=== PATIENT | female | born 1980 | race Caucasian/White ===

== ENCOUNTER 2017-02-17 10:45 | Outpatient (CLI) | payer MEDICAID ==
[2017-02-17 18:26] LABS: BASOPHILS % (AUTO) 0.3 %; EOSINOPHILS # (AUTO) 0.1 10^3/uL (0.0-0.7); EOSINOPHILS % (AUTO) 1.2 %; HCT - HEMATOCRIT 44.3 % (37.0-47.0); HGB - HEMOGLOBIN 14.5 g/dL (12.0-16.0); LYMPHOCYTES # (AUTO) 2.7 10^3/uL (1.5-3.5); LYMPHOCYTES % (AUTO) 29.3 %; MEAN CORPUSCULAR HEMOGLOBIN 29.6 pg (27.0-31.0); MEAN CORPUSCULAR HGB CONC 32.7 g/dL (32.0-36.0); MEAN CORPUSCULAR VOLUME 90.4 fL (81.0-99.0); MEAN PLATELET VOLUME 12.2 fL (7.9-10.8); MONOCYTES # (AUTO) 0.5 10^3/uL (0.0-1.0); MONOCYTES % (AUTO) 5.3 %; NEUTROPHILS # (AUTO) 5.8 10^3/uL (1.5-6.6); NEUTROPHILS % (AUTO) 63.9 %; NUCLEATED RED BLOOD CELLS AUTO 0.1 /100WBC; RED CELL DISTRIBUTION WIDTH 13.3 % (12.0-15.0); UNCORRECTED WHITE BLOOD COUNT 9.1 x10^3/uL; WHITE BLOOD COUNT 9.1 x10^3/uL (4.8-10.8)
[2017-02-17 18:45] LABS: ALBUMIN/GLOBULIN RATIO 1.3 (1.0-2.2); BILIRUBIN,TOTAL 0.6 mg/dL (0.2-1.0); CALCIUM 9.2 mg/dL (8.5-10.3); CREATININE 0.7 mg/dL (0.4-1.0); POTASSIUM 4.1 mmol/L (3.5-5.0); TOTAL PROTEIN 7.4 g/dL (6.7-8.2)
[2017-02-17 19:09] LABS: THYROID STIMULATING HORMONE 2.19 uIU/mL (0.34-5.60)
== END 2017-02-17 10:46 | disposition home or self-care (01) ==
LOC: LAB.F 10:45
PROVIDERS: ATTEND Nurse Practitioner Family
DX: R60.1 Generalized edema (principal)
CPT/HCPCS: 36415; 80053; 83880; 84439; 84443; 84481; 85025

== ENCOUNTER 2018-02-17 12:42 | Outpatient (CLI) | payer MEDICAID ==
[2018-02-17 18:09] LABS: BASOPHILS % (AUTO) 0.3 %; EOSINOPHILS # (AUTO) 0.1 10^3/uL (0.0-0.7); EOSINOPHILS % (AUTO) 1.2 %; HGB - HEMOGLOBIN 13.9 g/dL (12.0-16.0); LYMPHOCYTES # (AUTO) 2.2 10^3/uL (1.5-3.5); LYMPHOCYTES % (AUTO) 23.1 %; MEAN CORPUSCULAR HEMOGLOBIN 29.6 pg (27.0-31.0); MEAN CORPUSCULAR HGB CONC 33.3 g/dL (32.0-36.0); MEAN PLATELET VOLUME 11.6 fL (7.9-10.8); MONOCYTES # (AUTO) 0.4 10^3/uL (0.0-1.0); MONOCYTES % (AUTO) 4.6 %; NEUTROPHILS # (AUTO) 6.6 10^3/uL (1.5-6.6); NEUTROPHILS % (AUTO) 70.8 %; PLT - PLATELET COUNT 210 10^3/uL (130-450); RED BLOOD COUNT 4.69 10^6/uL (4.20-5.40); RED CELL DISTRIBUTION WIDTH 13.2 % (12.0-15.0); WHITE BLOOD COUNT 9.4 x10^3/uL (4.8-10.8)
[2018-02-17 18:23] LABS: ALBUMIN 4.2 g/dL (3.2-5.5); ALBUMIN/GLOBULIN RATIO 1.3 (1.0-2.2); BILIRUBIN,TOTAL 0.9 mg/dL (0.2-1.0); CALCIUM 9.3 mg/dL (8.5-10.3); CREATININE 0.6 mg/dL (0.4-1.0); TOTAL PROTEIN 7.4 g/dL (6.7-8.2)
[2018-02-17 19:14] LABS: THYROID STIMULATING HORMONE 2.17 uIU/mL (0.34-5.60)
[2018-02-17 19:16] LABS: FREE T4 (FREE THYROXINE) 0.87 ng/dL (0.58-1.64)
== END 2018-02-17 12:43 | disposition home or self-care (01) ==
LOC: LAB.F 12:42
PROVIDERS: ATTEND Nurse Practitioner Family
DX: I10 Essential (primary) hypertension (principal)
CPT/HCPCS: 36415; 80053; 84439; 84443; 84481; 85025

== ENCOUNTER 2018-04-28 17:10 | Outpatient (CLI) | payer MEDICAID | END 2018-04-28 17:11 | disposition home or self-care (01) | LOC: RT.S 17:10 | PROVIDERS: ATTEND Nurse Practitioner Family | DX: R00.2 Palpitations (principal) | CPT/HCPCS: 93005 ==

== ENCOUNTER 2018-06-16 11:33 | Outpatient (CLI) | payer MEDICAID ==
--- NOTE | 2018-06-18 01:43 | CARDIAC PROCEDURE NOTE ---
DATE OF SERVICE: 06/16/2018 Physician: JAIME Conteh ORDERING PROVIDER: JAIME Marinelli PROCEDURE: Stress echocardiogram. PROCEDURE SYMPTOMS: Daily palpitations and dyspnea on exertion. CARDIAC RISK FACTORS: Severe hypertension. PREVIOUS CARDIAC PROCEDURES: None. CLINICAL HISTORY: A 38-year-old female without known coronary artery disease. She has no current symptoms. INITIAL RESTING VITAL SIGNS: Blood pressure 124/74, heart rate 76, height 64 inches, weight 191 pounds, BMI 32.78. The patient consumed a small cup of coffee 5 hours ago. PROCEDURE AND FINDINGS: The patient's identity and date verified. Consent signed. After resting echocardiogram images were obtained, the patient performed treadmill exercise using a Jt protocol, completing 5 minutes, 58 seconds and an estimated workload of 7.05 metabolic equivalents. Maximal blood pressure was 146/70, with a heart rate of 162 beats per minute or 89% of maximum predicted heart rate for age. The blood pressure response to exercise was within normal limits. The patient stopped because she rated exercise as hard and was getting short of breath. She could also feel her heartbeat in her neck. The resting ECG showed normal sinus rhythm with slight slurred upstroke and intraventricular conduction delay. There was less than 0.[address] segment depression. The patient developed a right bundle branch block in the last minute of exercise when her heart rate was over 160. The bundle branch resolved by 3 minutes into recovery. Post-exercise images were obtained immediately on cessation of exercise. FINAL IMPRESSION 1. Good quality test. 2. No ST segment depression of significance. 3. Negative stress test clinically for angina. 4. Developed right bundle branch block in the last minute of the test, resolving spontaneously 3 minutes later. 5. The patient did have palpitations and shortness of breath at peak exercise. 6. Possible AVNRT. Recommend referral to cable installation technician for evaluation. TD: 06/17/2018 18:13 SHAJI
== END 2018-06-16 11:34 | disposition home or self-care (01) ==
LOC: DI 11:33
PROVIDERS: ATTEND Nurse Practitioner Family
DX: R00.2 Palpitations (principal); R06.00 Dyspnea, unspecified; I10 Essential (primary) hypertension
CPT/HCPCS: 93017

== ENCOUNTER 2018-07-14 09:44 | Emergency (ER) | payer MEDICAID ==
[2018-07-14 10:04] LABS: BILIRUBIN,URINE NEGATIVE (NEGATIVE); GLUCOSE, URINE (UA) NEGATIVE (NEGATIVE); KETONES,URINE (UA) NEGATIVE (NEGATIVE); LEUKOCYTE ESTERASE, URINE NEGATIVE (NEGATIVE); NITRITE,URINE NEGATIVE (NEGATIVE); OCCULT BLOOD,URINE LARGE (NEGATIVE); PROTEIN,URINE 30 mg/dL (NEGATIVE); UROBILINOGEN,URINE 0.2 (NORMAL) E.U./dL (NORMAL)
[2018-07-14 10:07] LABS: CLARITY,URINE SL. CLOUDY (CLEAR)
[2018-07-14 10:13] LABS: BACTERIA,URINE Few /HPF (None Seen); SQUAMOUS EPITHELIAL CELL,UR MANY Squamous (<= Few)
[2018-07-14] MEDS ORDERED: ONDANSETRON 4 MG/2 ML VIAL IVP STA (10:22)
[2018-07-14] MEDS ORDERED: SODIUM CHLORIDE 0.9% 1,000 ML IV ONE ×2 (10:23→13:52)
[2018-07-14 10:31] LABS: HCG UR QUAL NEGATIVE
[2018-07-14] MEDS ORDERED: MORPHINE 2 MG/ML CARPUJECT IVP STA ×2 (10:39→11:25)
[2018-07-14] MEDS ORDERED: FAMOTIDINE 20 MG/50 ML 50 ML IV ONE (11:00)
[2018-07-14 11:09] LABS: MUDS CUTOFF CONCENTRATIONS CUTOFF CONC BELOW:
[2018-07-14 11:56] LABS: AMPHETAMINE SCREEN,URINE NEGATIVE (NEGATIVE); BENZODIAZEPINES SCREEN, URINE NEGATIVE (NEGATIVE); COCAINE SCREEN URINE NEGATIVE (NEGATIVE); METHADONE SCREEN, URINE NEGATIVE (NEGATIVE); METHAMPHETAMINES SCREEN, URINE NEGATIVE (NEGATIVE); OPIATE SCREEN, URINE NEGATIVE (NEGATIVE); OXYCODONE SCREEN, URINE NEGATIVE (NEGATIVE); PROPOXYPHENE SCREEN, URINE NEGATIVE (NEGATIVE); TRICYCLIC ANTIDEPRESSANT,URINE NEGATIVE (NEGATIVE)
[2018-07-14 12:22] LABS: BASOPHILS % (AUTO) 0.4 %; EOSINOPHILS % (AUTO) 0.1 %; HGB - HEMOGLOBIN 13.8 g/dL (12.0-16.0); LYMPHOCYTES % (AUTO) 8.2 %; MEAN CORPUSCULAR HEMOGLOBIN 30.9 pg (27.0-31.0); MEAN CORPUSCULAR HGB CONC 34.5 g/dL (32.0-36.0); MEAN CORPUSCULAR VOLUME 89.8 fL (81.0-99.0); MEAN PLATELET VOLUME 10.5 fL (7.9-10.8); MONOCYTES # (AUTO) 0.3 10^3/uL (0.0-1.0); MONOCYTES % (AUTO) 2.2 %; NEUTROPHILS # (AUTO) 10.9 10^3/uL (1.5-6.6); NEUTROPHILS % (AUTO) 89.1 %; PLT - PLATELET COUNT 202 10^3/uL (130-450); RED BLOOD COUNT 4.46 10^6/uL (4.20-5.40); RED CELL DISTRIBUTION WIDTH 12.5 % (12.0-15.0); WHITE BLOOD COUNT 12.2 x10^3/uL (4.8-10.8)
[2018-07-14 12:38] LABS: ALBUMIN 4.2 g/dL (3.2-5.5); ALBUMIN/GLOBULIN RATIO 1.4 (1.0-2.2); BILIRUBIN,TOTAL 0.9 mg/dL (0.2-1.0); CALCIUM 8.1 mg/dL (8.5-10.3); CREATININE 0.7 mg/dL (0.4-1.0); TOTAL PROTEIN 7.1 g/dL (6.7-8.2)
[2018-07-14] MEDS ORDERED: IOPAMIDOL-300 100 ML VIAL ONE (12:39)
--- NOTE | 2018-07-14 13:29 | CT Report ---
Reason: ABDOMINAL PAIN Procedure Date: 07/14/2018 Accession Number: [id number] / [id number] Procedure: CT - Abdomen/Pelvis W/ CPT Code: FULL RESULT: EXAM: CT ABDOMEN AND PELVIS EXAM DATE: 07/14/2018 01:20 PM. CLINICAL HISTORY: Abdominal pain. COMPARISONS: None. TECHNIQUE: Routine helical CT imaging was performed through the abdomen and pelvis. IV contrast: ISOVUE 300 100mL. Enteric contrast: No. Reconstructions: Coronal and sagittal. In accordance with CT protocol optimization, one or more of the following dose reduction techniques were utilized for this exam: automated exposure control, adjustment of mA and/or KV based on patient size, or use of iterative reconstructive technique. FINDINGS: Lung Bases: Unremarkable. Liver: Normal. No masses. Gallbladder/Bile Ducts: Status post cholecystectomy. Spleen: Normal. Pancreas: Normal. Adrenal Glands: Normal. Kidneys: There is left perinephric fat stranding and mild hydronephrosis due to a obstructing 6 mm ureteral calculus on the left at the level of L3. Peritoneal Cavity/Bowel: Normal. No free fluid, free air or adenopathy. No masses or acute inflammatory process. The appendix is well visualized and normal. Pelvic Organs: Normal. The bladder and visualized pelvic organs are within normal limits. Vasculature: No aneurysms or other significant abnormality. Bones: No aggressive osseous lesion. Other: None. IMPRESSION: Obstructing left 6 mm calculus with mild upstream hydronephrosis. RADIA cRITICAL RESULT: The findings were discussed with Dr. Grider on 07/14/2018 at 1:25 PM.
[2018-07-14] MEDS ORDERED: KETOROLAC 60 MG/2 ML VIAL IVP STA (13:36)
[2018-07-14] MEDS ORDERED: TAMSULOSIN 0.4 MG CAPSULE PO STA (13:42)
[2018-07-14] MEDS ORDERED: LIDOCAINE-MPF 2% 6 ML in SODIUM CHLORIDE 0.9% 50 ML IV STA (13:44)
--- NOTE | 2018-07-14 15:12 | ED Physician Documentation ---
PD HPI ABD PAIN - Stated complaint Stated Complaint: UPPER LF ABD PX/VOMITING - Chief complaint Chief Complaint: Abd Pain - History obtained from History obtained from: Patient - History of Present Illness Timing - duration: Hours (3) Timing - details: Abrupt onset, Waxing and waning, Still present in ED Pain level max: 10 Pain level now: 10 Quality: Sharp Location: LUQ Improved by: Other (NOTHING) Worsened by: Other (NOTHING) Associated symptoms: Nausea, Vomiting. No: Fever, Hematemesis, Diarrhea, Constipation, Dysuria, Hematuria, Chest pain, Dizzy, Near syncope / syncope, Loss of appetite, Vaginal dc Similar symptoms before: Has not had sx before Recently seen: Not recently seen Review of Systems Ten Systems: 10 systems reviewed and negative Constitutional: denies: Fever, Chills Cardiac: denies: Chest pain / pressure Respiratory: denies: Dyspnea GI: reports: Abdominal Pain, Nausea, Vomiting. 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 04/15/15 Ondansetron HCl [Zofran] 4 mg PO Q6H PRN #20 tablet 01/01/16 Oxycodone HCl/Acetaminophen 1 each PO Q6H PRN #20 tablet 01/01/16 [Percocet 5-325 mg Tablet] RX: raNITIdine [Zantac] 150 mg PO BID #20 tablet 01/01/16 Diphenoxylate HCl/Atropine 1 each PO Q6H PRN #20 tablet 03/19/16 [Lomotil 2.5-0.025 mg Tablet] Ondansetron HCl [Zofran] 4 mg PO Q6H PRN #20 tablet 03/19/16 Ibuprofen [Motrin] 800 mg PO Q8H PRN #30 tablet 07/14/18 Ondansetron Odt [Zofran] 4 mg TL Q6H PRN #10 tablet 07/14/18 Oxycodone HCl/Acetaminophen 1 each PO Q6H PRN #14 tablet 07/14/18 [Percocet 5-325 mg Tablet] Tamsulosin HCl [Flomax] 0.4 mg PO DAILY #7 cap.er.24h 07/14/18 - Allergies Allergies/Adverse Reactions: Allergies Allergy/AdvReac Type Severity Reaction Status Date / Time hydrocodone bitartrate * AdvReac Mild Itching Verified 07/14/18 09:50 [From Vicodin] lidocaine AdvReac Mild Itching Verified 07/14/18 09:50 - Social History Does the pt smoke?: No Smoking Status: Never smoker Does the pt drink ETOH?: No Does the pt have substance abuse?: No - Immunizations Immunizations are current?: Yes PD ED PE NORMAL - Vitals Vital signs reviewed: Yes - General General: Alert and oriented X 3, Well developed/nourished, Other (Appears uncomfortable due to abdominal pain while laying on her right side.) - HEENT HEENT: Moist mucous membranes - Neck Neck: Supple, no meningeal sign - Cardiac Cardiac: RRR, No murmur - Respiratory Respiratory: No respiratory distress, Clear bilaterally - Abdomen Abdomen: Normal bowel sounds, Soft, Non distended, Other (tender to palpation of LUQ and LLQ of the abdomen. No rebound. No guarding.) - Back Back: No CVA TTP, No spinal TTP - Derm Derm: Normal color, Warm and dry - Extremities Extremities: No deformity - Neuro Neuro: Alert and oriented X 3, Normal speech - Psych Psych: Normal mood, Normal affect Results - Vitals Vitals: Vital Signs - 24 hr 07/14/18 07/14/18 07/14/18 09:47 10:46 11:00 Temperature 36.7 C Heart Rate 83 87 89 Respiratory 22 16 16 Rate Blood Pressure 144/92 H 131/83 H 131/83 H O2 Saturation 100 100 100 07/14/18 07/14/18 07/14/18 11:41 11:50 14:11 Temperature Heart Rate 95 102 H 85 Respiratory 15 21 15 Rate Blood Pressure 151/85 H 151/85 H 128/77 O2 Saturation 100 100 96 07/14/18 14:30 Temperature Heart Rate 86 Respiratory 16 Rate Blood Pressure 128/77 O2 Saturation 97 Oxygen O2 Source Room air - Labs Labs: Laboratory Tests 07/14/18 07/14/18 07/14/18 09:55 09:55 09:55 WBC RBC Hgb Hct MCV MCH MCHC RDW Plt Count MPV Neut # (Auto) Lymph # (Auto) Archer # (Auto) Eos # (Auto) Baso # (Auto) Absolute Nucleated RBC Nucleated RBC % Sodium Potassium Chloride Carbon Dioxide Anion Gap BUN Creatinine Estimated GFR (MDRD) Glucose Calcium Total Bilirubin AST ALT Alkaline Phosphatase Total Protein Albumin Globulin Albumin/Globulin Ratio Lipase Urine Color YELLOW Urine Clarity SL. CLOUDY Urine pH 6.0 Ur Specific [place] >=1.030 H >=1.030 H Urine Protein 30 H Urine Glucose (UA) NEGATIVE Urine Ketones NEGATIVE Urine Occult Blood LARGE H Urine Nitrite NEGATIVE Urine Bilirubin NEGATIVE Urine Urobilinogen 0.2 (NORMAL) Ur Leukocyte Esterase NEGATIVE Urine RBC 11-25 H Urine WBC 0-3 Ur Squamous Epith Cells MANY Squamous H Urine Bacteria Few Ur Microscopic Review INDICATED Urine Culture Comments NOT INDICATED Urine HCG, Qual NEGATIVE Urine Opiates Screen NEGATIVE Ur Oxycodone Screen NEGATIVE Urine Methadone Screen NEGATIVE Ur Propoxyphene Screen NEGATIVE Ur Barbiturates Screen NEGATIVE Ur Tricyclics Screen NEGATIVE Ur Phencyclidine Scrn NEGATIVE Ur Amphetamine Screen NEGATIVE U Methamphetamines Scrn NEGATIVE U Benzodiazepines Scrn NEGATIVE Urine Cocaine Screen NEGATIVE U Cannabinoids Screen NEGATIVE Infectious Archer Assay 07/14/18 07/14/18 07/14/18 12:16 12:16 12:16 WBC 12.2 H RBC 4.46 Hgb 13.8 Hct 40.0 MCV 89.8 MCH 30.9 MCHC 34.5 RDW 12.5 Plt Count 202 MPV 10.5 Neut # (Auto) 10.9 H Lymph # (Auto) 1.0 L Archer # (Auto) 0.3 Eos # (Auto) 0.0 Baso # (Auto) 0.0 Absolute Nucleated RBC 0.00 Nucleated RBC % 0.0 Sodium 132 L Potassium 3.3 L Chloride 105 Carbon Dioxide 19 L Anion Gap 8.0 BUN 10 Creatinine 0.7 Estimated GFR (MDRD) 94 Glucose 120 H Calcium 8.1 L Total Bilirubin 0.9 AST 37 ALT 43 Alkaline Phosphatase 84 Total Protein 7.1 Albumin 4.2 Globulin 2.9 Albumin/Globulin Ratio 1.4 Lipase 30 Urine Color Urine Clarity Urine pH Ur Specific [place] Urine Protein Urine Glucose (UA) Urine Ketones Urine Occult Blood Urine Nitrite Urine Bilirubin Urine Urobilinogen Ur Leukocyte Esterase Urine RBC Urine WBC Ur Squamous Epith Cells Urine Bacteria Ur Microscopic Review Urine Culture Comments Urine HCG, Qual Urine Opiates Screen Ur Oxycodone Screen Urine Methadone Screen Ur Propoxyphene Screen Ur Barbiturates Screen Ur Tricyclics Screen Ur Phencyclidine Scrn Ur Amphetamine Screen U Methamphetamines Scrn U Benzodiazepines Scrn Urine Cocaine Screen U Cannabinoids Screen Infectious Archer Assay NEGATIVE PD MEDICAL DECISION MAKING - ED course Complexity details: reviewed results, re-evaluated patient (1013 pt requesting for pain med. She stated she had morphine before without reactions. Pt informed as soon as her UCG is negative she will be given pain meds. 1126 Per nurse pt just received pain med 10 minutes ago and requesting for another dose. No MS given right now. 1155 Pt continues to have pain, will give another MS dose. 1336 Pt informed of test results. Explained to pt and spouse the CT scan results. Pt informed a urology consult is pending. 1445 Pt informed of urologist appointment. Pt states feels better after given toradol and lidocaine IV. Agreed to outpatient follow up w/ the urologist. Stated wants pain meds prescription. She stated had percocet before without problems. Pt will discharged on percocet, motrin, zofran and flomax. ), considered differential (pancreatitis, obstruction, volvolus, uti, kidney stone, diverticulitis), d/w patient, d/w family, d/w direct sales consultant - Consults Consults: Consulted (name) ([facility] [place] urologist seeing a pt right now. Info given to urologist nurse. They want the CT scan be sent to them. CRITICAL CARE NURSE SPECIALIST informed. [address] Barrett called me back and she stated pt's CT scan is unimpressive so pt can be discharged and they will call us back for pt's follow up appointment.) Departure - Departure Disposition: 01 Home, Self Care Clinical Impression: Renal colic, Kidney stone on left side Abdominal pain Qualifiers: Abdominal location: left upper quadrant Qualified Code(s): R10.12 - Left upper quadrant pain Condition: Good Instructions: Abdominal Pain Follow-Up: Melani Ferrer, DIRECT SALES CONSULTANT [Primary Care Provider] - Prescriptions: Ibuprofen [Motrin] 800 mg PO Q8H PRN #30 tablet PRN Reason: PAIN &/OR FEVER Ondansetron Odt [Zofran] 4 mg TL Q6H PRN #10 tablet PRN Reason: Nausea / Vomiting Oxycodone HCl/Acetaminophen [Percocet 5-325 mg Tablet] 1 each PO Q6H PRN #14 tablet PRN Reason: pain Tamsulosin HCl [Flomax] 0.4 mg PO DAILY #7 cap.er.24h Comments: DRINK 8 GLASSES OF WATER PER DAY. MAINTAIN SAFETY WHILE TAKING PERCOCET. NO ALCOHOL. NO DRIVING NOR WORKING WITH MACHINERY. TO PREVENT CONSTIPATION FROM NARCOTIC PAIN MED: OTC STOOL SOFTENER, HIGH FIBER FOODS, EXERCISE, WATER. TAKE THE MOTRIN WITH FOOD. FOR UROLOGY FOLLOW UP: [facility]IC [facility]IVARES, DR GUSTAVO ORELLANA ON JULY 28 AT 1200. THEIR TELEPHONE NUMBER IS [phone]. IF WORSE RETURN TO THE ER. Discharge Date/Time: 07/14/18 15:30
[2018-07-14 15:28] VITALS: BP 120/74
[2018-07-14] MEDS ORDERED: IOPAMIDOL-300 100 ML VIAL IVP ONE (16:49)
== END 2018-07-14 15:30 | disposition home or self-care (01) ==
LOC: ED 09:44
DX: N20.0 Calculus of kidney (principal)
CPT/HCPCS: 36415; 74177; 80053; 80306; 81001; 81025; 83690; 85025; 86308; 96365; 96367; 96375; 96376; 99284; 99285; A9270; J7040; Q9967; 81003; 87086

== ENCOUNTER 2018-07-18 20:20 | Emergency (ER) | payer MEDICAID ==
[2018-07-18 20:51] LABS: BILIRUBIN,URINE NEGATIVE (NEGATIVE); GLUCOSE, URINE (UA) NEGATIVE (NEGATIVE); KETONES,URINE (UA) NEGATIVE (NEGATIVE); LEUKOCYTE ESTERASE, URINE NEGATIVE (NEGATIVE); NITRITE,URINE NEGATIVE (NEGATIVE); OCCULT BLOOD,URINE SMALL (NEGATIVE); PROTEIN,URINE NEGATIVE (NEGATIVE); UROBILINOGEN,URINE 0.2 (NORMAL) E.U./dL (NORMAL)
[2018-07-18 20:53] LABS: CLARITY,URINE CLEAR (CLEAR)
[2018-07-18 21:03] LABS: BACTERIA,URINE None Seen /HPF (None Seen); RBC,URINE 0-5 /HPF (0-5); SQUAMOUS EPITHELIAL CELL,UR MOD Squamous (<= Few)
[2018-07-18] MEDS ORDERED: KETOROLAC 60 MG/2 ML VIAL IM STA (21:55)
--- NOTE | 2018-07-18 21:57 | ED Physician Documentation ---
History of Present Illness - Stated complaint Stated Complaint: L ABDOMINAL PX - Chief complaint Chief Complaint: Abd Pain - Additonal information Additional information: 38-year-old female presents the emergency department for evaluation of a urine infection. The patient has a recent diagnosis of a obstructing kidney stone. The patient is scheduled to see the urologist in 2 days. The patient was concerned about a coinciding urine infection. The patient denies fevers, chills. The patient has had ongoing pain from the kidney stone. The patient has no acute changes in her symptoms. The patient has had no significant improvement of her symptoms. The patient has had some nausea, vomiting and diarrhea. Symptoms are described as moderate. 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 04/15/15 Ondansetron HCl [Zofran] 4 mg PO Q6H PRN #20 tablet 01/01/16 Oxycodone HCl/Acetaminophen 1 each PO Q6H PRN #20 tablet 01/01/16 [Percocet 5-325 mg Tablet] raNITIdine [Zantac] 150 mg PO BID #20 tablet 01/01/16 Diphenoxylate HCl/Atropine 1 each PO Q6H PRN #20 tablet 03/19/16 [Lomotil 2.5-0.025 mg Tablet] Ondansetron HCl [Zofran] 4 mg PO Q6H PRN #20 tablet 03/19/16 Ibuprofen [Motrin] 800 mg PO Q8H PRN #30 tablet 07/14/18 Ondansetron Odt [Zofran] 4 mg TL Q6H PRN #10 tablet 07/14/18 Oxycodone HCl/Acetaminophen 1 each PO Q6H PRN #14 tablet 07/14/18 [Percocet 5-325 mg Tablet] Tamsulosin HCl [Flomax] 0.4 mg PO DAILY #7 cap.er.24h 07/14/18 - Allergies Allergies/Adverse Reactions: Allergies Allergy/AdvReac Type Severity Reaction Status Date / Time hydrocodone bitartrate * AdvReac Mild Itching Verified 07/18/18 20:29 [From Vicodin] lidocaine AdvReac Mild Itching Verified 07/18/18 20:29 - Social History Does the pt smoke?: No Smoking Status: Never smoker Does the pt drink ETOH?: No Does the pt have substance abuse?: No - Immunizations Immunizations are current?: Yes - POLST Patient has POLST: No PD ED PE NORMAL - General General: Alert and oriented X 3, No acute distress - HEENT HEENT: Atraumatic, PERRL, EOMI, Ears normal - Neck Neck: Supple, no meningeal sign - Cardiac Cardiac: RRR, Strong equal pulses - Respiratory Respiratory: No respiratory distress - Abdomen Abdomen: Soft, Non tender (The patient has generalized tenderness, no rebound or peritoneal signs), Non distended - Derm Derm: Normal color - Extremities Extremities: No deformity - Neuro Neuro: Alert and oriented X 3, Normal speech Results - Vitals Vitals: Vital Signs - 24 hr 07/18/18 20:27 Temperature 36.8 C Heart Rate 77 Respiratory 16 Rate Blood Pressure 149/86 H O2 Saturation 99 Oxygen O2 Source Room air - Labs Labs: Laboratory Tests 07/18/18 20:41 Urine Color YELLOW Urine Clarity CLEAR Urine pH 6.0 Ur Specific [place] 1.020 Urine Protein NEGATIVE Urine Glucose (UA) NEGATIVE Urine Ketones NEGATIVE Urine Occult Blood SMALL H Urine Nitrite NEGATIVE Urine Bilirubin NEGATIVE Urine Urobilinogen 0.2 (NORMAL) Ur Leukocyte Esterase NEGATIVE Urine RBC 0-5 Urine WBC 0-3 Ur Squamous Epith Cells MOD Squamous H Urine Bacteria None Seen Ur Microscopic Review INDICATED Urine Culture Comments NOT INDICATED PD MEDICAL DECISION MAKING - ED course ED course: The patient's urinalysis does not show evidence of an acute urine infection. There is hematuria which most likely is from the kidney stone. The patient's vomiting and diarrhea may be secondary to the usage of Motrin recently. Presently, the patient's pain appears to be managed, the patient does not want any further workup at this time. The patient's main concern was having an urine infection. Currently, the patient is requesting discharge and has appropriate follow-up care in 2 days with urology. I discussed warning signs and recommended returning to the emergency department for any worsening or any concerns. Departure - Departure Disposition: 01 Home, Self Care Clinical Impression: Kidney stone Condition: Good Instructions: ED Stone Renal W Colic Comments: Please follow-up with the urologist as scheduled. Please return to the emergency department immediately for any worsening or any concerns
[2018-07-18 22:02] VITALS: BP 148/73
== END 2018-07-18 22:07 | disposition home or self-care (01) ==
LOC: ED 20:20
DX: N20.0 Calculus of kidney (principal); R31.9 Hematuria, unspecified
CPT/HCPCS: 81001; 81003; 87086; 96372; 99283; 99284

== ENCOUNTER 2018-11-08 16:50 | Emergency (ER) | payer MEDICAID ==
[2018-11-08 17:02] VITALS: BP 159/91
--- NOTE | 2018-11-08 17:24 | ED Physician Documentation ---
PD HPI Fall - Stated complaint Stated Complaint: NK PX/GLF/L SHOULDER PX - Chief complaint Chief Complaint: Trauma Ch/Bk - History obtained from History obtained from: Patient - History of Present Illness Mechanism of injury: Slipped Fall distance: Standing position (she was getting out of car at [facility] to get her Depo shot ( control) and she says she slipped as getting out, with her legs sliding under the car as she held onto the door. Landed onto left side/back, with some twisting and then impact left shoulder area. Pain in shoulder, upper back. Did not strike head. Tried to get some ice in clinic but they did not give her any, and were not set for xrays or such, so just referred patient to come to the ER, per patient.) Where injury occurred: Other (parking lot of [facility]) Timing - onset: How many minutes ago (30), Today Injury(ies) location: Back, Left Uppper Extremity Quality of pain: Aching Associated symptoms: No: LOC, AMS Symptoms improve with: Rest Worsens with: Movement Similar symptoms before: Has not had sx before Recently seen: Not recently seen Review of Systems Skin: denies: Abrasion (s), Laceration (s) Musculoskeletal: reports: Back pain, Extremity pain Neurologic: denies: Focal weakness, Numbness, Altered mental status, Head injury PD PAST MEDICAL HISTORY - Past Medical History Cardiovascular: None Respiratory: None Neuro: None Endocrine/Autoimmune: None GI: None 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: 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(s) : None HEENT: None Psych: None Musculoskeletal: None Derm: None - Past Surgical History Past Surgical History: Yes General: Cholecystectomy - Present Medications Home Medications: Ambulatory Orders Medication Instructions Recorded Confirmed Lisinopril [Prinivil] 0 mg ORAL DAILY 11/08/18 11/08/18 Methocarbamol [Robaxin] 500 mg PO Q6H PRN #20 tablet 11/08/18 Tramadol HCl 50 mg PO Q6H PRN #15 tablet 11/08/18 - Allergies Allergies/Adverse Reactions: Allergies Allergy/AdvReac Type Severity Reaction Status Date / Time hydrocodone bitartrate * AdvReac Mild Hives Verified 11/08/18 17:03 [From Vicodin] - Social History Does the pt smoke?: No Smoking Status: Never smoker Does the pt drink ETOH?: No Does the pt have substance abuse?: No - Immunizations Immunizations are current?: Yes - POLST Patient has POLST: No PD ED PE NORMAL - Vitals Vital signs reviewed: Yes - General General: Alert and oriented X 3, No acute distress (but holding left shoulder immobile.), Well developed/nourished - HEENT HEENT: Atraumatic - Neck Neck: Supple, no meningeal sign, No adenopathy, Other (some tenderness upper thoracic spine to the left. ) - Cardiac Cardiac: RRR, No murmur - Respiratory Respiratory: Clear bilaterally, Other (mildly tender left lateral chest/muscles lower axillary area. ) - Abdomen Abdomen: Soft, Non tender Results - Vitals Vitals: Vital Signs - 24 hr 11/08/18 16:55 Temperature 36.7 C Heart Rate 89 Respiratory 16 Rate Blood Pressure 159/91 H O2 Saturation 98 Oxygen O2 Source Room air - Rads (name of study) thoracic spine Radiology: Prelim report reviewed (normal), See rad report left shoulder Radiology: Prelim report reviewed (no fractures), See rad report PD MEDICAL DECISION MAKING - ED course Complexity details: reviewed results, considered differential (sounds like shoulder girdle strain and thoracic strain. No fractures. ), d/w patient Departure - Departure Disposition: 01 Home, Self Care Clinical Impression: Fall due to ice or snow Qualifiers: Encounter type: initial encounter Qualified Code(s): W00.9XXA - Unspecified fall due to ice and snow, initial encounter Sprain of left shoulder girdle Qualifiers: Encounter type: initial encounter Qualified Code(s): S43.92XA - Sprain of unspecified parts of left shoulder girdle, initial encounter Cervical strain, acute Qualifiers: Encounter type: initial encounter Qualified Code(s): S16.1XXA - Strain of muscle, fascia and tendon at neck level, initial encounter Condition: Stable Record reviewed to determine appropriate education?: Yes Instructions: ED Sprain Strain Neck, ED Sprain Shoulder Follow-Up: Melani Ferrer ARNP [Primary Care Provider] - Prescriptions: Methocarbamol [Robaxin] 500 mg PO Q6H PRN #20 tablet PRN Reason: Spasms Tramadol HCl 50 mg PO Q6H PRN #15 tablet PRN Reason: Pain Comments: Use a sling for protection of range of motion of the shoulder. Have your shoulder out of the sling with gentle range of motion so does not stiffen up. Use some naproxen or ibuprofen type medicines 2-3 times a day for the next several days to a week. Add Tylenol or tramadol if needed for pain. Robaxin muscle relaxant if needed for stiffness and spasm. Try heat or cold and see which feels better on the neck and shoulder. Recheck if not better over the next several days to week. Your x-rays appeared normal without any fractures. Discharge Date/Time: 11/08/18 19:32
[2018-11-08] MEDS ORDERED: IBUPROFEN 600 MG TABLET PO STA (18:07)
[2018-11-08] MEDS ORDERED: ACETAMINOPHEN 325 MG TABLET PO STA (18:07)
--- NOTE | 2018-11-08 18:49 | XRAY Report ---
Reason: fall, twisted upper back; struck upper back Procedure Date: 11/08/2018 Accession Number: [id number] / [id number] Procedure: XR - Thoracic Spine 2 View CPT Code: FULL RESULT: EXAM: THORACIC SPINE RADIOGRAPHY EXAM DATE: 11/08/2018 06:23 PM. CLINICAL HISTORY: Fall, twisted upper back; struck upper back. COMPARISON: None. TECHNIQUE: 2 views. FINDINGS: Alignment: Minimal scoliosis. No listhesis. Bones: No fractures or bone lesions. Disks: Normal. Disk heights are maintained. Soft Tissues: Normal. The visualized lungs and cardiomediastinal silhouette are normal. IMPRESSION: No acute disease. RADIA
--- NOTE | 2018-11-08 18:50 | XRAY Report ---
Reason: fall and twisted left shoulder Procedure Date: 11/08/2018 Accession Number: [id number] / [id number] Procedure: XR - Shoulder 3 View LT CPT Code: FULL RESULT: EXAM: LEFT SHOULDER RADIOGRAPHY EXAM DATE: 11/08/2018 06:23 PM. CLINICAL HISTORY: Fall, pain. COMPARISON: None. TECHNIQUE: 3 views. FINDINGS: Bones: Normal. No fracture or bone lesion. Joints: The glenohumeral and acromioclavicular joints are normal. Soft tissues: The visualized hemithorax is unremarkable. No soft tissue swelling. IMPRESSION: Normal shoulder radiography. RADIA
[2018-11-08] MEDS ORDERED: CYCLOBENZAPRINE 10 MG Prepack 2 PO PRN (19:18)
== END 2018-11-08 19:32 | disposition home or self-care (01) ==
LOC: ED 16:50
DX: S43.92XA Sprain of unspecified parts of left shoulder girdle, initial encounter (principal); S16.1XXA Strain of muscle, fascia and tendon at neck level, initial encounter; W01.10XA Fall on same level from slipping, tripping and stumbling with subsequent striking against unspecified object, initial encounter; X50.9XXA Other and unspecified overexertion or strenuous movements or postures, initial encounter; Y92.481 Parking lot as the place of occurrence of the external cause
CPT/HCPCS: 72070; 73030; 99283; A9270

== ENCOUNTER 2018-11-18 10:27 | Outpatient (CLI) | payer MEDICAID | END 2018-11-18 10:28 | disposition home or self-care (01) | LOC: LAB.F 10:27 | PROVIDERS: ATTEND Nurse Practitioner Family | DX: Z80.3 Family history of malignant neoplasm of breast (principal) | CPT/HCPCS: 36415; 81599 ==

== ENCOUNTER 2018-12-09 12:48 | Outpatient (CLI) | payer MEDICAID ==
[2018-12-09 18:21] LABS: CREATININE 0.7 mg/dL (0.4-1.0)
== END 2018-12-09 12:49 | disposition home or self-care (01) ==
LOC: LAB.F 12:48
PROVIDERS: ATTEND Nurse Practitioner Family
DX: N63.0 Unspecified lump in unspecified breast (principal)
CPT/HCPCS: 36415; 82565

== ENCOUNTER 2019-03-09 08:52 | Outpatient (CLI) | payer MEDICAID ==
[2019-03-09 17:43] LABS: BASOPHILS # (AUTO) 0.1 10^3/uL (0.0-0.1); BASOPHILS % (AUTO) 0.7 %; EOSINOPHILS # (AUTO) 0.1 10^3/uL (0.0-0.7); EOSINOPHILS % (AUTO) 1.2 %; HGB - HEMOGLOBIN 14.2 g/dL (12.0-16.0); LYMPHOCYTES # (AUTO) 2.1 10^3/uL (1.5-3.5); LYMPHOCYTES % (AUTO) 25.9 %; MEAN CORPUSCULAR HEMOGLOBIN 30.4 pg (27.0-31.0); MEAN CORPUSCULAR HGB CONC 33.1 g/dL (32.0-36.0); MEAN CORPUSCULAR VOLUME 91.9 fL (81.0-99.0); MEAN PLATELET VOLUME 11.9 fL (7.9-10.8); MONOCYTES # (AUTO) 0.4 10^3/uL (0.0-1.0); MONOCYTES % (AUTO) 4.3 %; NEUTROPHILS # (AUTO) 5.6 10^3/uL (1.5-6.6); NEUTROPHILS % (AUTO) 67.9 %; PLT - PLATELET COUNT 209 10^3/uL (130-450); RED BLOOD COUNT 4.68 10^6/uL (4.20-5.40); RED CELL DISTRIBUTION WIDTH 13.3 % (12.0-15.0); WHITE BLOOD COUNT 8.2 x10^3/uL (4.8-10.8)
[2019-03-09 17:50] LABS: ALBUMIN 4.1 g/dL (3.2-5.5); ALBUMIN/GLOBULIN RATIO 1.2 (1.0-2.2); ALKALINE PHOSPHATASE 66 IU/L (42-121); ALT ALANINE AMINOTRANSFERASE 23 IU/L (10-60); AST ASPARTATE AMINOTRANSFERASE 20 IU/L (10-42); BILIRUBIN,TOTAL 0.5 mg/dL (0.2-1.0); BUN - BLOOD UREA NITROGEN 10 mg/dL (6-20); CALCIUM 8.9 mg/dL (8.5-10.3); CARBON DIOXIDE - CO2 24 mmol/L (21-32); CHLORIDE 106 mmol/L (101-111); CHOL/HDL RATIO 5.2 (<4.4); CHOLESTEROL 173 mg/dL; CREATININE 0.7 mg/dL (0.4-1.0); GFR - MDRD 93 (>89); GLUCOSE 100 mg/dL (70-100); HDL CHOLESTEROL 33 mg/dL; LDL CHOLESTEROL,CALCULATED 104 mg/dL; LDL/HDL RATIO 3.2 (<4.4); SODIUM 139 mmol/L (135-145); TOTAL PROTEIN 7.4 g/dL (6.7-8.2); VLDL CHOLESTEROL 36 mg/dL
[2019-03-09 18:48] LABS: RHEUMATOID FACTOR NEGATIVE (Negative)
[2019-03-13 19:02] LABS: ANA SCREEN POSITIVE (NEGATIVE)
== END 2019-03-09 08:53 | disposition home or self-care (01) ==
LOC: LAB 08:52
PROVIDERS: ATTEND Nurse Practitioner
DX: I10 Essential (primary) hypertension (principal); Z13.220 Encounter for screening for lipoid disorders; L40.50 Arthropathic psoriasis, unspecified
CPT/HCPCS: 36415; 80053; 80061; 83721; 85025; 86038; 86430

== ENCOUNTER 2019-03-28 14:56 | Outpatient (CLI) | payer MEDICAID ==
--- NOTE | 2019-03-28 17:20 | Ultrasound Report ---
Reason: ABDOMINAL PAIN,LEFT LOWER QUADRANT Procedure Date: 03/28/2019 Accession Number: [id number] / [id number] Procedure: US - Pelvic w/Transvaginal CPT Code: FULL RESULT: EXAM: PELVIC ULTRASOUND EXAM DATE: 03/28/2019 03:16 PM. CLINICAL HISTORY: Left lower quadrant abdominal pain. COMPARISON: None. TECHNIQUE: Realtime transabdominal pelvic scan performed to identify the uterus and adnexa and as an overview of other pelvic structures, followed by transvaginal scan to provide greater detail of the uterus and adnexa, with static image documentation. FINDINGS: Uterus: 6.7 x 3.4 x 3.9 cm, volume 46 cc. Anteverted position. Normal overall size and echotexture. Masses: None. Endometrium: 6 mm. Normal. Cervix: Unremarkable. Right Ovary: 3.0 x 1.5 x 1.6 cm, volume 3.7 cc. Normal echotexture and blood flow. Left Ovary: 2.9 x 1.9 x 2.6 cm, volume 7.4 cc. Normal echotexture and blood flow. Free Fluid: None. Other: None. IMPRESSION: Normal pelvic ultrasound. No etiology for pain identified. RADIA
== END 2019-03-28 14:57 | disposition home or self-care (01) ==
LOC: DI 14:56
PROVIDERS: ATTEND Surgery
DX: R10.32 Left lower quadrant pain (principal)
CPT/HCPCS: 76830; 76856

== ENCOUNTER 2019-04-04 09:05 | Outpatient (CLI) | payer MEDICAID ==
[2019-04-04 18:23] LABS: BASOPHILS % (AUTO) 0.4 %; EOSINOPHILS # (AUTO) 0.1 10^3/uL (0.0-0.7); HGB - HEMOGLOBIN 12.9 g/dL (12.0-16.0); LYMPHOCYTES # (AUTO) 2.4 10^3/uL (1.5-3.5); LYMPHOCYTES % (AUTO) 31.8 %; MEAN CORPUSCULAR HEMOGLOBIN 29.7 pg (27.0-31.0); MEAN CORPUSCULAR HGB CONC 31.2 g/dL (32.0-36.0); MEAN CORPUSCULAR VOLUME 95.4 fL (81.0-99.0); MONOCYTES # (AUTO) 0.4 10^3/uL (0.0-1.0); MONOCYTES % (AUTO) 4.6 %; NEUTROPHILS # (AUTO) 4.7 10^3/uL (1.5-6.6); NEUTROPHILS % (AUTO) 61.9 %; PLT - PLATELET COUNT 159 10^3/uL (130-450); RED BLOOD COUNT 4.34 10^6/uL (4.20-5.40); RED CELL DISTRIBUTION WIDTH 12.8 % (12.0-15.0); WHITE BLOOD COUNT 7.6 x10^3/uL (4.8-10.8)
[2019-04-04 18:29] LABS: ALBUMIN 4.2 g/dL (3.2-5.5); ALBUMIN/GLOBULIN RATIO 1.4 (1.0-2.2); ALKALINE PHOSPHATASE 59 IU/L (42-121); ALT ALANINE AMINOTRANSFERASE 26 IU/L (10-60); AMYLASE 53 U/L (28-100); AST ASPARTATE AMINOTRANSFERASE 20 IU/L (10-42); BILIRUBIN,TOTAL 0.6 mg/dL (0.2-1.0); BUN - BLOOD UREA NITROGEN 12 mg/dL (6-20); CALCIUM 8.7 mg/dL (8.5-10.3); CARBON DIOXIDE - CO2 21 mmol/L (21-32); CHLORIDE 108 mmol/L (101-111); CREATININE 0.7 mg/dL (0.4-1.0); CRP - C-REACTIVE PROTEIN < 1.0 mg/dL (0-1.0); GFR - MDRD 93 (>89); GLUCOSE 90 mg/dL (70-100); LIPASE 38 U/L (22-51); SODIUM 140 mmol/L (135-145); TOTAL PROTEIN 7.2 g/dL (6.7-8.2)
[2019-04-04 18:34] LABS: BILIRUBIN,URINE NEGATIVE (NEGATIVE); GLUCOSE, URINE (UA) NEGATIVE (NEGATIVE); KETONES,URINE (UA) NEGATIVE (NEGATIVE); LEUKOCYTE ESTERASE, URINE SMALL (NEGATIVE); NITRITE,URINE NEGATIVE (NEGATIVE); OCCULT BLOOD,URINE NEGATIVE (NEGATIVE); PROTEIN,URINE NEGATIVE (NEGATIVE); UROBILINOGEN,URINE 0.2 (NORMAL) E.U./dL (NORMAL)
[2019-04-04 18:36] LABS: CLARITY,URINE CLOUDY (CLEAR)
[2019-04-04 19:10] LABS: BACTERIA,URINE Few /HPF (None Seen); RBC,URINE 0-5 /HPF (0-5); SQUAMOUS EPITHELIAL CELL,UR MANY Squamous (<= Few)
[2019-04-07 12:01] LABS: DNA (DS) ANTIBODY 1 IU/mL
[2019-04-08 02:32] LABS: SMOOTH MUSCLE IGG AB <20 U
[2019-04-10 14:37] LABS: ANA SCREEN POSITIVE (NEGATIVE)
[2019-04-12 07:53] LABS: CARDIOLIPIN AB IGA <11
[2019-04-12 07:59] LABS: B2 GLYCOPROTEIN I IGA AB <9; B2 GLYCOPROTEIN I IGG AB 17
[2019-04-12 08:00] LABS: B2 GLYCOPROTEIN I IGM AB <9
== END 2019-04-04 09:06 | disposition home or self-care (01) ==
LOC: LAB.S 09:05
PROVIDERS: ATTEND Dermatology
DX: L40.9 Psoriasis, unspecified (principal); R10.9 Unspecified abdominal pain; R60.1 Generalized edema; R00.2 Palpitations; R79.89 Other specified abnormal findings of blood chemistry; R10.32 Left lower quadrant pain
CPT/HCPCS: 36415; 80053; 81001; 81599; 82150; 83516; 83690; 85025; 85613; 85651; 85730; 86038; 86039; 86140; 86146; 86147; 86225; 86235

== ENCOUNTER 2019-08-04 18:47 | Outpatient (CLI) | payer OTHER, MEDICAID | END 2019-08-04 18:48 | disposition critical access hospital (66) | LOC: EMS 18:47 | PROVIDERS: ATTEND Surgery | DX: R51 Headache (principal); M54.2 Cervicalgia; M25.512 Pain in left shoulder; V53.5XXA Driver of pick-up truck or van injured in collision with car, pick-up truck or van in traffic accident, initial encounter; Y92.414 Local residential or business street as the place of occurrence of the external cause ==

== ENCOUNTER 2019-08-04 19:17 | Emergency (ER) | payer OTHER, MEDICAID ==
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
[2019-08-04] MEDS ORDERED: ONDANSETRON 4 MG/2 ML VIAL IVP STA (20:06)
[2019-08-04] MEDS ORDERED: MORPHINE 2 MG/ML CARPUJECT IVP STA (20:06)
[2019-08-04 20:52] LABS: BASOPHILS % (AUTO) 0.3 %; EOSINOPHILS % (AUTO) 0.4 %; HGB - HEMOGLOBIN 12.6 g/dL (12.0-16.0); LYMPHOCYTES # (AUTO) 2.2 10^3/uL (1.5-3.5); LYMPHOCYTES % (AUTO) 21.7 %; MEAN CORPUSCULAR HEMOGLOBIN 30.3 pg (27.0-31.0); MEAN CORPUSCULAR VOLUME 91.8 fL (81.0-99.0); MEAN PLATELET VOLUME 12.3 fL (7.9-10.8); MONOCYTES # (AUTO) 0.5 10^3/uL (0.0-1.0); MONOCYTES % (AUTO) 4.8 %; NEUTROPHILS # (AUTO) 7.3 10^3/uL (1.5-6.6); NEUTROPHILS % (AUTO) 72.4 %; PLT - PLATELET COUNT 194 10^3/uL (130-450); RED BLOOD COUNT 4.16 10^6/uL (4.20-5.40); RED CELL DISTRIBUTION WIDTH 12.5 % (12.0-15.0)
[2019-08-04 20:58] LABS: INR 1.1 (0.8-1.2); PT - PROTHROMBIN TIME 12.9 secs (9.9-12.6)
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
[2019-08-04 21:09] LABS: ALBUMIN 4.1 g/dL (3.2-5.5); ALBUMIN/GLOBULIN RATIO 1.4 (1.0-2.2); BILIRUBIN,TOTAL 0.6 mg/dL (0.2-1.0); CALCIUM 8.7 mg/dL (8.5-10.3); CREATININE 0.8 mg/dL (0.4-1.0); TOTAL PROTEIN 7.1 g/dL (6.7-8.2)
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
[2019-08-04 21:22] LABS: HCG,QUALITATIVE BLOOD NEGATIVE
[2019-08-04] MEDS ORDERED: METHOCARBAMOL 500 MG TABLET PO STA (22:12)
[2019-08-04 22:19] VITALS: BP 127/84
== END 2019-08-04 22:27 | disposition home or self-care (01) ==
LOC: EDUNIT# → ED 19:17
DX: Z04.1 Encounter for examination and observation following transport accident (principal); M25.512 Pain in left shoulder; R51 Headache; I10 Essential (primary) hypertension
CPT/HCPCS: 36415; 70450; 71250; 72125; 73502; 80053; 83690; 84703; 85025; 85610; 96374; 99282; 99284; A9270

== ENCOUNTER 2019-11-16 09:23 | Outpatient (CLI) | payer MEDICAID ==
[2019-11-16 17:45] LABS: CREATININE 0.7 mg/dL (0.4-1.0)
== END 2019-11-16 09:24 | disposition home or self-care (01) ==
LOC: LAB.S 09:23
PROVIDERS: ATTEND Registered Nurse
DX: S33.5XXA Sprain of ligaments of lumbar spine, initial encounter (principal); S33.6XXA Sprain of sacroiliac joint, initial encounter; M54.16 Radiculopathy, lumbar region
CPT/HCPCS: 36415; 80048

== ENCOUNTER 2019-11-22 12:33 | Outpatient (CLI) | payer MEDICAID ==
[2019-11-22] MEDS ORDERED: GADOBUTROL 10 MMOL/10 ML VIAL ONE (13:40)
[2019-11-22] MEDS: GADOBUTROL 10 MMOL/10 ML VIAL IVP ONE (14:32)
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
== END 2019-11-22 12:34 | disposition home or self-care (01) ==
LOC: DI 12:33
PROVIDERS: ATTEND Registered Nurse
DX: S33.5XXA Sprain of ligaments of lumbar spine, initial encounter (principal); S33.6XXA Sprain of sacroiliac joint, initial encounter; M54.16 Radiculopathy, lumbar region
CPT/HCPCS: 72158; A9585

== ENCOUNTER 2020-07-23 09:36 | Outpatient (CLI) | payer MEDICAID | END 2020-07-23 09:37 | disposition home or self-care (01) | LOC: COV 09:36 | PROVIDERS: ATTEND Family Medicine | DX: R05 Cough (principal); Z20.828 Contact with and (suspected) exposure to other viral communicable diseases; R09.81 Nasal congestion; R19.7 Diarrhea, unspecified; J02.9 Acute pharyngitis, unspecified; M79.10 Myalgia, unspecified site ==

== ENCOUNTER 2021-01-08 10:15 | Outpatient (CLI) | payer MEDICAID ==
[2021-01-08 14:29] LABS: BASOPHILS % (AUTO) 0.3 %; EOSINOPHILS # (AUTO) 0.1 10^3/uL (0.0-0.7); EOSINOPHILS % (AUTO) 1.4 %; HCT - HEMATOCRIT 46.1 % (37.0-47.0); HGB - HEMOGLOBIN 14.8 g/dL (12.0-16.0); LYMPHOCYTES % (AUTO) 29.1 %; MEAN CORPUSCULAR HEMOGLOBIN 30.3 pg (27.0-31.0); MEAN CORPUSCULAR HGB CONC 32.1 g/dL (32.0-36.0); MEAN CORPUSCULAR VOLUME 94.3 fL (81.0-99.0); MEAN PLATELET VOLUME 13.1 fL (7.9-10.8); MONOCYTES # (AUTO) 0.5 10^3/uL (0.0-1.0); MONOCYTES % (AUTO) 5.1 %; NEUTROPHILS # (AUTO) 6.5 10^3/uL (1.5-6.6); NEUTROPHILS % (AUTO) 63.6 %; PLT - PLATELET COUNT 251 10^3/uL (130-450); RED BLOOD COUNT 4.89 10^6/uL (4.20-5.40); RED CELL DISTRIBUTION WIDTH 12.6 % (12.0-15.0); WHITE BLOOD COUNT 10.3 x10^3/uL (4.8-10.8)
[2021-01-08 15:48] LABS: ALBUMIN 4.5 g/dL (3.2-5.5); ALBUMIN/GLOBULIN RATIO 1.4 (1.0-2.2); ALKALINE PHOSPHATASE 71 IU/L (42-121); ALT ALANINE AMINOTRANSFERASE 41 IU/L (10-60); AST ASPARTATE AMINOTRANSFERASE 33 IU/L (10-42); BILIRUBIN,TOTAL 0.7 mg/dL (0.2-1.0); BUN - BLOOD UREA NITROGEN 14 mg/dL (6-20); CALCIUM 9.6 mg/dL (8.5-10.3); CARBON DIOXIDE - CO2 24 mmol/L (21-32); CHLORIDE 104 mmol/L (101-111); CREATININE 0.7 mg/dL (0.4-1.0); GFR - MDRD 93 (>89); GLUCOSE 94 mg/dL (70-100); POTASSIUM 4.2 mmol/L (3.5-5.0); SODIUM 138 mmol/L (135-145); TOTAL PROTEIN 7.7 g/dL (6.7-8.2)
[2021-01-08 15:50] LABS: CRP - C-REACTIVE PROTEIN < 1.0 mg/dL (0-1.0)
== END 2021-01-08 10:16 | disposition home or self-care (01) ==
LOC: LAB.S 10:15
PROVIDERS: ATTEND Internal Medicine Rheumatology
DX: L40.50 Arthropathic psoriasis, unspecified (principal)
CPT/HCPCS: 36415; 80053; 85025; 85651; 86140

== ENCOUNTER 2021-01-14 17:09 | Outpatient (CLI) | payer MEDICAID ==
--- NOTE | 2021-01-15 09:24 | Ultrasound Report ---
PROCEDURE: Head or Neck Soft Tissue INDICATIONS: NECK MASS TECHNIQUE: Real time scanning was performed of the neck region of interest, with image documentation . COMPARISON: None. FINDINGS: There is no neck mass identified outside of the thyroid. The thyroid was imaged as part of this study. Right lobe of the thyroid measures 4.6 x 1.6 x 1.8 cm. Left lobe of the thyroid measures 4.7 x 1.2 x 1.4 cm. Both lobes are homogeneous in appearance, other than small nodules. On the right, there is a small solid nodule measuring 0.4 x 0.3 x 0.5 cm. The nodule is solid, hypoec hoic, with smooth margins, and no echogenic foci. It is wider than tall. This is a moderately suspici ous nodule, but based on size, no further follow-up is required. On the left, there is a less than 0.5 cm cystic nodule. This is a benign nodule. No further follow-up required. IMPRESSION: 1. No evidence of suspicious neck mass. 2. Note made of 0.5 cm maximum diameter right thyroid nodule. Based on size, no further follow-up req uired. Reviewed by: Yoni Wade MD on 01/15/2021 9:23 AM PDT Approved by: Yoni Wade MD on 01/15/2021 9:23 AM PDT Station ID: [id number]
== END 2021-01-14 17:10 | disposition home or self-care (01) ==
LOC: DI 17:09
PROVIDERS: ATTEND Registered Nurse
DX: E04.1 Nontoxic single thyroid nodule (principal)

== ENCOUNTER 2021-01-24 08:56 | Outpatient (CLI) | payer MEDICAID ==
[2021-01-24 14:42] LABS: BASOPHILS % (AUTO) 0.4 %; EOSINOPHILS # (AUTO) 0.1 10^3/uL (0.0-0.7); EOSINOPHILS % (AUTO) 1.1 %; HCT - HEMATOCRIT 45.3 % (37.0-47.0); HGB - HEMOGLOBIN 14.3 g/dL (12.0-16.0); LYMPHOCYTES # (AUTO) 2.4 10^3/uL (1.5-3.5); LYMPHOCYTES % (AUTO) 32.3 %; MEAN CORPUSCULAR HEMOGLOBIN 31.7 pg (27.0-31.0); MEAN CORPUSCULAR HGB CONC 31.6 g/dL (32.0-36.0); MEAN CORPUSCULAR VOLUME 100.4 fL (81.0-99.0); MEAN PLATELET VOLUME 12.4 fL (7.9-10.8); MONOCYTES # (AUTO) 0.4 10^3/uL (0.0-1.0); MONOCYTES % (AUTO) 4.8 %; NEUTROPHILS # (AUTO) 4.5 10^3/uL (1.5-6.6); NEUTROPHILS % (AUTO) 61.1 %; PLT - PLATELET COUNT 214 10^3/uL (130-450); RED BLOOD COUNT 4.51 10^6/uL (4.20-5.40); RED CELL DISTRIBUTION WIDTH 12.8 % (12.0-15.0); WHITE BLOOD COUNT 7.3 x10^3/uL (4.8-10.8)
[2021-01-24 15:28] LABS: ALBUMIN 4.2 g/dL (3.2-5.5); ALBUMIN/GLOBULIN RATIO 1.5 (1.0-2.2); ALKALINE PHOSPHATASE 64 IU/L (42-121); ALT ALANINE AMINOTRANSFERASE 30 IU/L (10-60); AST ASPARTATE AMINOTRANSFERASE 26 IU/L (10-42); BUN - BLOOD UREA NITROGEN 10 mg/dL (6-20); CARBON DIOXIDE - CO2 21 mmol/L (21-32); CHLORIDE 105 mmol/L (101-111); CHOL/HDL RATIO 5.4 (<4.4); CHOLESTEROL 212 mg/dL; CREATININE 0.7 mg/dL (0.4-1.0); GFR - MDRD 92 (>89); GLUCOSE 91 mg/dL (70-100); HDL CHOLESTEROL 39 mg/dL; LDL CHOLESTEROL,CALCULATED 147 mg/dL; LDL/HDL RATIO 3.8 (<4.4); POTASSIUM 4.4 mmol/L (3.5-5.0); SODIUM 135 mmol/L (135-145); TRIGLYCERIDES 129 mg/dL; VLDL CHOLESTEROL 26 mg/dL
[2021-01-24 16:01] LABS: THYROID STIMULATING HORMONE 1.89 uIU/mL (0.34-5.60)
== END 2021-01-24 08:57 | disposition home or self-care (01) ==
LOC: LAB.S 08:56
PROVIDERS: ATTEND Registered Nurse
DX: M32.9 Systemic lupus erythematosus, unspecified (principal); R21 Rash and other nonspecific skin eruption; L40.50 Arthropathic psoriasis, unspecified; G43.909 Migraine, unspecified, not intractable, without status migrainosus; I10 Essential (primary) hypertension; K04.7 Periapical abscess without sinus; R76.8 Other specified abnormal immunological findings in serum
CPT/HCPCS: 36415; 80053; 80061; 83721; 84443; 85025

== ENCOUNTER 2021-04-30 09:03 | Outpatient (CLI) | payer MEDICAID ==
[2021-04-30 14:26] LABS: BASOPHILS % (AUTO) 0.4 %; EOSINOPHILS # (AUTO) 0.1 10^3/uL (0.0-0.7); EOSINOPHILS % (AUTO) 1.2 %; HCT - HEMATOCRIT 44.3 % (37.0-47.0); HGB - HEMOGLOBIN 14.2 g/dL (12.0-16.0); LYMPHOCYTES # (AUTO) 2.5 10^3/uL (1.5-3.5); LYMPHOCYTES % (AUTO) 28.3 %; MEAN CORPUSCULAR HEMOGLOBIN 30.7 pg (27.0-31.0); MEAN CORPUSCULAR HGB CONC 32.1 g/dL (32.0-36.0); MEAN CORPUSCULAR VOLUME 95.7 fL (81.0-99.0); MEAN PLATELET VOLUME 12.9 fL (7.9-10.8); MONOCYTES # (AUTO) 0.5 10^3/uL (0.0-1.0); MONOCYTES % (AUTO) 6.1 %; NEUTROPHILS # (AUTO) 5.7 10^3/uL (1.5-6.6); NEUTROPHILS % (AUTO) 63.7 %; PLT - PLATELET COUNT 231 10^3/uL (130-450); RED BLOOD COUNT 4.63 10^6/uL (4.20-5.40); RED CELL DISTRIBUTION WIDTH 13.2 % (12.0-15.0); WHITE BLOOD COUNT 8.9 x10^3/uL (4.8-10.8)
[2021-04-30 15:20] LABS: ALBUMIN 4.3 g/dL (3.2-5.5); ALBUMIN/GLOBULIN RATIO 1.4 (1.0-2.2); ALKALINE PHOSPHATASE 72 IU/L (42-121); ALT ALANINE AMINOTRANSFERASE 33 IU/L (10-60); AST ASPARTATE AMINOTRANSFERASE 23 IU/L (10-42); BILIRUBIN,TOTAL 0.8 mg/dL (0.2-1.0); BUN - BLOOD UREA NITROGEN 11 mg/dL (6-20); CALCIUM 9.2 mg/dL (8.5-10.3); CARBON DIOXIDE - CO2 21 mmol/L (21-32); CHLORIDE 107 mmol/L (101-111); CREATININE 0.7 mg/dL (0.4-1.0); CRP - C-REACTIVE PROTEIN < 1.0 mg/dL (0-1.0); GFR - MDRD 92 (>89); GLUCOSE 100 mg/dL (70-100); SODIUM 138 mmol/L (135-145); TOTAL PROTEIN 7.3 g/dL (6.7-8.2)
== END 2021-04-30 09:04 | disposition home or self-care (01) ==
LOC: LAB.S 09:03
PROVIDERS: ATTEND Internal Medicine Rheumatology
DX: L40.50 Arthropathic psoriasis, unspecified (principal)
CPT/HCPCS: 36415; 80053; 85025; 85651; 86140

== ENCOUNTER 2021-08-06 09:20 | Outpatient (CLI) | payer MEDICAID ==
[2021-08-06 14:44] LABS: BASOPHILS % (AUTO) 0.6 %; EOSINOPHILS # (AUTO) 0.1 10^3/uL (0.0-0.7); EOSINOPHILS % (AUTO) 1.5 %; HCT - HEMATOCRIT 43.7 % (37.0-47.0); HGB - HEMOGLOBIN 14.4 g/dL (12.0-16.0); LYMPHOCYTES % (AUTO) 29.8 %; MEAN CORPUSCULAR HEMOGLOBIN 31.7 pg (27.0-31.0); MEAN CORPUSCULAR VOLUME 96.3 fL (81.0-99.0); MEAN PLATELET VOLUME 13.1 fL (7.9-10.8); MONOCYTES # (AUTO) 0.3 10^3/uL (0.0-1.0); MONOCYTES % (AUTO) 4.8 %; NEUTROPHILS # (AUTO) 4.2 10^3/uL (1.5-6.6); PLT - PLATELET COUNT 233 10^3/uL (130-450); RED BLOOD COUNT 4.54 10^6/uL (4.20-5.40); RED CELL DISTRIBUTION WIDTH 13.2 % (12.0-15.0); WHITE BLOOD COUNT 6.6 x10^3/uL (4.8-10.8)
[2021-08-06 16:07] LABS: ALBUMIN 4.3 g/dL (3.2-5.5); ALBUMIN/GLOBULIN RATIO 1.5 (1.0-2.2); ALKALINE PHOSPHATASE 73 IU/L (42-121); ALT ALANINE AMINOTRANSFERASE 28 IU/L (10-60); AST ASPARTATE AMINOTRANSFERASE 23 IU/L (10-42); BILIRUBIN,TOTAL 0.6 mg/dL (0.2-1.0); BUN - BLOOD UREA NITROGEN 9 mg/dL (6-20); CALCIUM 8.9 mg/dL (8.5-10.3); CARBON DIOXIDE - CO2 21 mmol/L (21-32); CHLORIDE 107 mmol/L (101-111); CREATININE 0.6 mg/dL (0.4-1.0); GFR - MDRD 110 (>89); GLUCOSE 107 mg/dL (70-100); POTASSIUM 3.9 mmol/L (3.5-5.0); SODIUM 137 mmol/L (135-145); TOTAL PROTEIN 7.1 g/dL (6.7-8.2)
[2021-08-06 16:12] LABS: CRP - C-REACTIVE PROTEIN < 1.0 mg/dL (0-1.0)
[2021-08-08 11:17] LABS: NIL 0.01 IU/mL; TB1-NIL 0.02 IU/mL; TB2-NIL 0.01 IU/mL
== END 2021-08-06 09:21 | disposition home or self-care (01) ==
LOC: LAB.S 09:20
PROVIDERS: ATTEND Internal Medicine Rheumatology
DX: L40.50 Arthropathic psoriasis, unspecified (principal)
CPT/HCPCS: 36415; 80053; 85025; 85651; 86140; 86480

== ENCOUNTER 2021-10-25 11:33 | Outpatient (CLI) | payer MEDICAID ==
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
== END 2021-10-25 11:34 | disposition home or self-care (01) ==
LOC: DI.S 11:33
PROVIDERS: ATTEND Registered Nurse
DX: R53.83 Other fatigue (principal)

== ENCOUNTER 2021-12-09 08:56 | Outpatient (CLI) | payer MEDICAID ==
[2021-12-09 14:34] LABS: BASOPHILS % (AUTO) 0.3 %; EOSINOPHILS # (AUTO) 0.1 10^3/uL (0.0-0.7); HCT - HEMATOCRIT 43.4 % (37.0-47.0); HGB - HEMOGLOBIN 14.3 g/dL (12.0-16.0); LYMPHOCYTES # (AUTO) 2.1 10^3/uL (1.5-3.5); LYMPHOCYTES % (AUTO) 30.9 %; MEAN CORPUSCULAR HEMOGLOBIN 31.4 pg (27.0-31.0); MEAN CORPUSCULAR HGB CONC 32.9 g/dL (32.0-36.0); MEAN CORPUSCULAR VOLUME 95.2 fL (81.0-99.0); MEAN PLATELET VOLUME 13.6 fL (7.9-10.8); MONOCYTES # (AUTO) 0.4 10^3/uL (0.0-1.0); MONOCYTES % (AUTO) 5.8 %; NEUTROPHILS # (AUTO) 4.3 10^3/uL (1.5-6.6); NEUTROPHILS % (AUTO) 61.7 %; PLT - PLATELET COUNT 211 10^3/uL (130-450); RED BLOOD COUNT 4.56 10^6/uL (4.20-5.40); RED CELL DISTRIBUTION WIDTH 12.7 % (12.0-15.0); WHITE BLOOD COUNT 6.9 x10^3/uL (4.8-10.8)
[2021-12-09 14:37] LABS: ALBUMIN 4.3 g/dL (3.2-5.5); ALBUMIN/GLOBULIN RATIO 1.5 (1.0-2.2); ALKALINE PHOSPHATASE 58 IU/L (42-121); ALT ALANINE AMINOTRANSFERASE 27 IU/L (10-60); AST ASPARTATE AMINOTRANSFERASE 19 IU/L (10-42); BILIRUBIN,TOTAL 0.5 mg/dL (0.2-1.0); BUN - BLOOD UREA NITROGEN 8 mg/dL (6-20); CARBON DIOXIDE - CO2 24 mmol/L (21-32); CHLORIDE 105 mmol/L (101-111); CREATININE 0.7 mg/dL (0.4-1.0); GFR - MDRD 92 (>89); GLUCOSE 97 mg/dL (70-100); POTASSIUM 3.9 mmol/L (3.5-5.0); SODIUM 139 mmol/L (135-145); TOTAL PROTEIN 7.2 g/dL (6.7-8.2)
[2021-12-09 14:38] LABS: CRP - C-REACTIVE PROTEIN < 1.0 mg/dL (0-1.0)
== END 2021-12-09 08:57 | disposition home or self-care (01) ==
LOC: LAB.S 08:56
PROVIDERS: ATTEND Internal Medicine Rheumatology
DX: L40.50 Arthropathic psoriasis, unspecified (principal)
CPT/HCPCS: 36415; 80053; 85025; 85651; 86140

== ENCOUNTER 2022-02-26 12:06 | Outpatient (CLI) | payer MEDICAID ==
[2022-02-26 14:49] LABS: BASOPHILS % (AUTO) 0.3 %; EOSINOPHILS # (AUTO) 0.1 10^3/uL (0.0-0.7); EOSINOPHILS % (AUTO) 1.1 %; HCT - HEMATOCRIT 42.7 % (37.0-47.0); HGB - HEMOGLOBIN 13.9 g/dL (12.0-16.0); LYMPHOCYTES # (AUTO) 2.5 10^3/uL (1.5-3.5); MEAN CORPUSCULAR HGB CONC 32.6 g/dL (32.0-36.0); MEAN CORPUSCULAR VOLUME 95.3 fL (81.0-99.0); MONOCYTES # (AUTO) 0.4 10^3/uL (0.0-1.0); MONOCYTES % (AUTO) 4.6 %; NEUTROPHILS # (AUTO) 5.6 10^3/uL (1.5-6.6); NEUTROPHILS % (AUTO) 64.8 %; PLT - PLATELET COUNT 212 10^3/uL (130-450); RED BLOOD COUNT 4.48 10^6/uL (4.20-5.40); RED CELL DISTRIBUTION WIDTH 13.1 % (12.0-15.0); WHITE BLOOD COUNT 8.7 x10^3/uL (4.8-10.8)
[2022-02-26 16:35] LABS: ALBUMIN 4.2 g/dL (3.2-5.5); ALBUMIN/GLOBULIN RATIO 1.4 (1.0-2.2); ALKALINE PHOSPHATASE 63 IU/L (42-121); ALT ALANINE AMINOTRANSFERASE 24 IU/L (10-60); AST ASPARTATE AMINOTRANSFERASE 18 IU/L (10-42); BILIRUBIN,TOTAL 0.5 mg/dL (0.2-1.0); BUN - BLOOD UREA NITROGEN 12 mg/dL (6-20); CALCIUM 8.9 mg/dL (8.5-10.3); CARBON DIOXIDE - CO2 23 mmol/L (21-32); CHLORIDE 105 mmol/L (101-111); CREATININE 0.8 mg/dL (0.4-1.0); GFR - MDRD 79 (>89); GLUCOSE 102 mg/dL (70-100); POTASSIUM 3.5 mmol/L (3.5-5.0); SODIUM 138 mmol/L (135-145); TOTAL PROTEIN 7.1 g/dL (6.7-8.2)
[2022-02-26 17:04] LABS: CRP - C-REACTIVE PROTEIN < 1.0 mg/dL (0-1.0)
== END 2022-02-26 12:07 | disposition home or self-care (01) ==
LOC: LAB.S 12:06
PROVIDERS: ATTEND Internal Medicine Rheumatology
DX: L40.50 Arthropathic psoriasis, unspecified (principal)
CPT/HCPCS: 36415; 80053; 85025; 85651; 86140

== ENCOUNTER 2022-06-30 11:29 | Outpatient (CLI) | payer MEDICAID ==
[2022-06-30 15:08] LABS: BASOPHILS % (AUTO) 0.1 %; EOSINOPHILS # (AUTO) 0.1 10^3/uL (0.0-0.7); EOSINOPHILS % (AUTO) 0.9 %; HCT - HEMATOCRIT 43.1 % (37.0-47.0); HGB - HEMOGLOBIN 14.7 g/dL (12.0-16.0); LYMPHOCYTES # (AUTO) 2.4 10^3/uL (1.5-3.5); LYMPHOCYTES % (AUTO) 27.8 %; MEAN CORPUSCULAR HEMOGLOBIN 31.8 pg (27.0-31.0); MEAN CORPUSCULAR HGB CONC 34.1 g/dL (32.0-36.0); MEAN CORPUSCULAR VOLUME 93.3 fL (81.0-99.0); MONOCYTES # (AUTO) 0.4 10^3/uL (0.0-1.0); NEUTROPHILS # (AUTO) 5.7 10^3/uL (1.5-6.6); PLT - PLATELET COUNT 223 10^3/uL (130-450); RED BLOOD COUNT 4.62 10^6/uL (4.20-5.40); RED CELL DISTRIBUTION WIDTH 12.7 % (12.0-15.0); WHITE BLOOD COUNT 8.6 x10^3/uL (4.8-10.8)
[2022-06-30 16:02] LABS: ALBUMIN 4.3 g/dL (3.2-5.5); ALBUMIN/GLOBULIN RATIO 1.4 (1.0-2.2); ALKALINE PHOSPHATASE 69 IU/L (42-121); ALT ALANINE AMINOTRANSFERASE 22 IU/L (10-60); AST ASPARTATE AMINOTRANSFERASE 25 IU/L (10-42); BILIRUBIN,TOTAL 0.9 mg/dL (0.2-1.0); BUN - BLOOD UREA NITROGEN 10 mg/dL (6-20); CALCIUM 8.9 mg/dL (8.5-10.3); CARBON DIOXIDE - CO2 23 mmol/L (21-32); CHLORIDE 106 mmol/L (101-111); CREATININE 0.8 mg/dL (0.4-1.0); GFR - MDRD 79 (>89); GLUCOSE 96 mg/dL (70-100); POTASSIUM 3.9 mmol/L (3.5-5.0); SODIUM 137 mmol/L (135-145); TOTAL PROTEIN 7.4 g/dL (6.7-8.2)
[2022-06-30 16:05] LABS: CRP - C-REACTIVE PROTEIN < 1.0 mg/dL (0-1.0)
== END 2022-06-30 11:30 | disposition home or self-care (01) ==
LOC: LAB.S 11:29
PROVIDERS: ATTEND Internal Medicine Rheumatology
DX: L40.50 Arthropathic psoriasis, unspecified (principal)
CPT/HCPCS: 36415; 80053; 85025; 85651; 86140

== ENCOUNTER 2022-07-14 14:31 | Emergency (ER) | payer MEDICAID ==
[2022-07-14] MEDS ORDERED: ONDANSETRON 4 MG/2 ML VIAL IM STA (15:08)
[2022-07-14] MEDS ORDERED: MORPHINE 2 MG/ML CARPUJECT IM STA (15:08)
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
[2022-07-14 16:34] VITALS: BP 163/95
== END 2022-07-14 16:40 | disposition home or self-care (01) ==
LOC: ED 14:31
DX: S06.9X9A Unspecified intracranial injury with loss of consciousness of unspecified duration, initial encounter (principal); M54.2 Cervicalgia; W01.198A Fall on same level from slipping, tripping and stumbling with subsequent striking against other object, initial encounter; Y92.009 Unspecified place in unspecified non-institutional (private) residence as the place of occurrence of the external cause; I10 Essential (primary) hypertension
CPT/HCPCS: 96372; 99284

== ENCOUNTER 2022-07-30 08:55 | Outpatient (CLI) | payer MEDICAID ==
--- NOTE | 2022-07-31 11:18 | Ultrasound Report ---
LIMITED ULTRASOUND OF LEFT BREAST: 07/30/2022 CLINICAL: Focal left breast pain. Palpable left breast lump by physician. Comparison is made to exams dated: 07/30/2022 mammogram - [facility], 11/23/2018 ma mmogram, and 11/23/2018 ultrasound - [facility]. Real-time ultrasound of the left breast 5 o'clock and 9 o'clock regions was performed. Dhaliwal scale i mages of the real-time examination were reviewed. No significant abnormalities were seen sonographically in the left breast. IMPRESSION: NEGATIVE There is no sonographic evidence of malignancy. There is no abnormality seen in the left breast to correspond with the palpable abnormality at 5 o'cl ock, however, clinical followup is recommended. There is no abnormality seen in the left breast to c orrespond with the pain at 9 o'clock, however, clinical followup is recommended. A 1 year screening mammogram is recommended. This exam was interpreted at Station ID: [id number]. Electronically Signed By: Hardik toth/elio:07/30/2022 20:34:19 Ultrasound BI-RADS: 1 Negative BI-RADS CATEGORY: (1) - 1 RECOMMENDATION: (ANNUAL) - Recommend routine annual screening mammography. [id number] 1 year screening LATERALITY: (B)
--- NOTE | 2022-07-31 11:18 | Mammography Report ---
BILATERAL DIGITAL DIAGNOSTIC MAMMOGRAM 3D/2D: 07/30/2022 CLINICAL: Palpable left breast lump by physician. Focal left breast pain. Comparison is made to exam dated: 11/23/2018 mammogram - [facility]. There are scattered areas of fibroglandular density in both breasts (category b / 25%-50% glandular t issue). No significant masses, calcifications, or other findings are seen in either breast. IMPRESSION: INCOMPLETE: NEEDS ADDITIONAL IMAGING EVALUATION There is no abnormality seen in the left breast to correspond with the palpable abnormality in the in ferior aspect, however, ultrasound is recommended. There is no abnormality seen in the left breast t o correspond with the pain in the medial aspect, however, ultrasound is recommended. Based on the Tyrer Cuzick model (a risk assessment model) the patients lifetime risk is 5.7% and her 10 year risk is 0.8%. According to the ACR, ACS, and NCCN guidelines, an annual breast MRI exam eun g with mammogram is recommended if the patients lifetime risk is 20% or greater. This exam was interpreted at Station ID: [id number]. NOTE: For mammograms, a report in lay terms will be sent to the patient. Approximately 15% of breast malignancies will not be visualized mammographically. In the management of a palpable breast mass, a negative mammogram must not discourage biopsy of a clinically suspicious lesion. Electronically Signed By: Hardik toth/elio:07/30/2022 20:32:26 ACR BI-RADS Category 0: Incomplete 3340F PARENCHYMAL PATTERN: (A) - The breast(s) demonstrate(s) scattered fibroglandular densities. BI-RADS CATEGORY: (0) - 0 Ultrasound [id number] Immediate follow-up LATERALITY: (L)
== END 2022-07-30 08:56 | disposition home or self-care (01) ==
LOC: DI 08:55
PROVIDERS: ATTEND Physician Assistant
DX: N63.25 Unspecified lump in the left breast, overlapping quadrants (principal); N64.4 Mastodynia

== ENCOUNTER 2022-09-10 09:18 | Outpatient (CLI) | payer MEDICAID ==
[2022-09-10 14:43] LABS: BASOPHILS % (AUTO) 0.3 %; EOSINOPHILS # (AUTO) 0.1 10^3/uL (0.0-0.7); EOSINOPHILS % (AUTO) 0.6 %; HCT - HEMATOCRIT 43.2 % (37.0-47.0); HGB - HEMOGLOBIN 14.2 g/dL (12.0-16.0); LYMPHOCYTES # (AUTO) 1.6 10^3/uL (1.5-3.5); LYMPHOCYTES % (AUTO) 16.9 %; MEAN CORPUSCULAR HEMOGLOBIN 31.5 pg (27.0-31.0); MEAN CORPUSCULAR HGB CONC 32.9 g/dL (32.0-36.0); MEAN CORPUSCULAR VOLUME 95.8 fL (81.0-99.0); MEAN PLATELET VOLUME 12.9 fL (7.9-10.8); MONOCYTES # (AUTO) 0.2 10^3/uL (0.0-1.0); MONOCYTES % (AUTO) 2.2 %; NEUTROPHILS # (AUTO) 7.7 10^3/uL (1.5-6.6); NEUTROPHILS % (AUTO) 79.6 %; PLT - PLATELET COUNT 224 10^3/uL (130-450); RED BLOOD COUNT 4.51 10^6/uL (4.20-5.40); WHITE BLOOD COUNT 9.6 x10^3/uL (4.8-10.8)
[2022-09-10 15:20] LABS: ALBUMIN/GLOBULIN RATIO 1.3 (1.0-2.2); ALKALINE PHOSPHATASE 77 IU/L (42-121); ALT ALANINE AMINOTRANSFERASE 22 IU/L (10-60); AST ASPARTATE AMINOTRANSFERASE 19 IU/L (10-42); BILIRUBIN,TOTAL 0.4 mg/dL (0.2-1.0); BUN - BLOOD UREA NITROGEN 12 mg/dL (6-20); CARBON DIOXIDE - CO2 25 mmol/L (21-32); CHLORIDE 105 mmol/L (101-111); CREATININE 0.7 mg/dL (0.4-1.0); GFR - MDRD 92 (>89); GLUCOSE 121 mg/dL (70-100); POTASSIUM 4.2 mmol/L (3.5-5.0); SODIUM 139 mmol/L (135-145); TOTAL PROTEIN 7.1 g/dL (6.7-8.2)
[2022-09-10 15:23] LABS: CRP - C-REACTIVE PROTEIN < 1.0 mg/dL (0-1.0)
[2022-09-11 04:09] LABS: HBsAG SCREEN Negative (Negative); HEPATITIS B SURFACE AB QUANT <3.1 mIU/mL (Immunity>9.9)
[2022-09-11 06:09] LABS: HCV AB <0.1 s/co ratio (0.0-0.9)
== END 2022-09-10 09:19 | disposition home or self-care (01) ==
LOC: LAB.S 09:18
PROVIDERS: ATTEND Internal Medicine Rheumatology
DX: L40.50 Arthropathic psoriasis, unspecified (principal)
CPT/HCPCS: 36415; 80053; 81599; 85025; 85651; 86140; 86317; 86480; 86704; 86803; 87340

== ENCOUNTER 2023-04-01 08:00 | Outpatient (CLI) | payer MEDICAID ==
--- NOTE | 2023-04-01 16:32 | XRAY Report ---
PROCEDURE: Ankle 3 View LT INDICATIONS: LEFT ANKLE PAIN TECHNIQUE: 3 views of the ankle were acquired. COMPARISON: None. FINDINGS: Bones: Small fracture through the anterior process of the calcaneus noted on the lateral Soft tissues: No tibiotalar joint effusion. Achilles tendon appears normal. Dorsal soft tissue swe lling IMPRESSION: Small nondisplaced fracture through the anterior calcaneal process noted on the lateral exam Reviewed by: Miguel Zhang MD on 04/01/2023 3:31 PM CURTIS Approved by: Miguel Zhang MD on 04/01/2023 3:31 PM AKTERRI Station ID: [id number]
== END 2023-04-01 23:59 | disposition home or self-care (01) ==
LOC: DI.S 08:00
PROVIDERS: ATTEND Physician Assistant
DX: S92.025A Nondisplaced fracture of anterior process of left calcaneus, initial encounter for closed fracture (principal)

== ENCOUNTER 2023-04-08 08:00 | Outpatient (CLI) | payer MEDICAID ==
--- NOTE | 2023-04-08 15:10 | XRAY Report ---
PROCEDURE: Ankle 3 View LT INDICATIONS: LEFT ANKLE INJURY TECHNIQUE: 3 views of the ankle were acquired. COMPARISON: X-ray foot 04/08/2023, x-ray ankle 04/01/2023 FINDINGS: Bones: Minimally displaced anterior calcaneal fracture unchanged. Unchanged appearance of lucency al damian the dorsal aspect of the navicular seen only on lateral view. Ankle mortise is normally aligned. No suspicious bony lesions. Soft tissues: No tibiotalar joint effusion. Achilles tendon appears normal. IMPRESSION: Unchanged minimally displaced anterior calcaneal fracture. Small lucency on the dorsal aspect of the navicular, with avulsion fracture suspected. Recommend joyce elation of point tenderness. Reviewed by: Symone Smith MD on 04/08/2023 3:09 PM PDT Approved by: Symone Smith MD on 04/08/2023 3:09 PM PDT Station ID: [id number]
--- NOTE | 2023-04-08 15:12 | XRAY Report ---
PROCEDURE: Foot 3 View LT INDICATIONS: LEFT FOOT INJURY TECHNIQUE: 3 views of the foot were acquired. COMPARISON: X-ray ankle 04/08/2023, 04/01/2023 FINDINGS: Bones: Unchanged anterior calcaneal fracture. In addition, small lucency is noted along the dorsal a spect of the navicular bone.. No suspicious bony lesions. Soft tissues: No suspicious soft tissue calcifications or masses. IMPRESSION: Unchanged minimal anterior calcaneal fracture. Small lucency along the dorsal navicular bone suggests a small avulsion. Reviewed by: Symone Smith MD on 04/08/2023 3:11 PM PDT Approved by: Symone Smith MD on 04/08/2023 3:11 PM PDT Station ID: [id number]
== END 2023-04-08 23:59 | disposition home or self-care (01) ==
LOC: DI.WOS 08:00
PROVIDERS: ATTEND Orthopaedic Surgery Sports Medicine
DX: S92.022A Displaced fracture of anterior process of left calcaneus, initial encounter for closed fracture (principal)

== ENCOUNTER 2023-11-15 08:55 | Outpatient (CLI) | payer MEDICAID ==
[2023-11-15 15:10] LABS: BASOPHILS % (AUTO) 0.3 %; EOSINOPHILS # (AUTO) 0.1 10^3/uL (0.0-0.7); EOSINOPHILS % (AUTO) 2.1 %; HCT - HEMATOCRIT 45.9 % (37.0-47.0); HGB - HEMOGLOBIN 14.7 g/dL (12.0-16.0); LYMPHOCYTES # (AUTO) 2.6 10^3/uL (1.5-3.5); LYMPHOCYTES % (AUTO) 39.2 %; MEAN CORPUSCULAR VOLUME 96.8 fL (81.0-99.0); MONOCYTES # (AUTO) 0.5 10^3/uL (0.0-1.0); MONOCYTES % (AUTO) 7.3 %; NEUTROPHILS # (AUTO) 3.4 10^3/uL (1.5-6.6); NEUTROPHILS % (AUTO) 50.8 %; PLT - PLATELET COUNT 226 10^3/uL (130-450); RED BLOOD COUNT 4.74 10^6/uL (4.20-5.40); RED CELL DISTRIBUTION WIDTH 12.8 % (12.0-15.0); WHITE BLOOD COUNT 6.6 x10^3/uL (4.8-10.8)
[2023-11-15 16:15] LABS: ALBUMIN 4.5 g/dL (3.2-5.5); ALBUMIN/GLOBULIN RATIO 1.9 (1.0-2.2); ALKALINE PHOSPHATASE 62 IU/L (42-121); ALT ALANINE AMINOTRANSFERASE 29 IU/L (10-60); AST ASPARTATE AMINOTRANSFERASE 21 IU/L (10-42); BILIRUBIN,TOTAL 0.7 mg/dL (0.2-1.0); BUN - BLOOD UREA NITROGEN 9 mg/dL (6-20); CALCIUM 9.5 mg/dL (8.5-10.3); CARBON DIOXIDE - CO2 25 mmol/L (21-32); CHLORIDE 105 mmol/L (101-111); CREATININE 0.7 mg/dL (0.6-1.3); CRP - C-REACTIVE PROTEIN < 0.5 mg/dL (<0.5); GFR - MDRD 91 (>89); GLUCOSE 88 mg/dL (74-104); POTASSIUM 4.2 mmol/L (3.5-4.5); SODIUM 138 mmol/L (135-145); TOTAL PROTEIN 6.9 g/dL (6.4-8.9)
== END 2023-11-15 08:56 | disposition home or self-care (01) ==
LOC: LAB.S 08:55
PROVIDERS: ATTEND Internal Medicine Rheumatology
DX: L40.50 Arthropathic psoriasis, unspecified (principal)
CPT/HCPCS: 36415; 80053; 85025; 85651; 86140

== ENCOUNTER 2024-06-12 08:14 | Outpatient (CLI) | payer MEDICAID ==
[2024-06-12 15:03] LABS: HCT - HEMATOCRIT 44.6 % (37.0-47.0); HGB - HEMOGLOBIN 14.2 g/dL (12.0-16.0); MEAN CORPUSCULAR HEMOGLOBIN 30.7 pg (27.0-31.0); MEAN CORPUSCULAR HGB CONC 31.8 g/dL (32.0-36.0); MEAN CORPUSCULAR VOLUME 96.3 fL (81.0-99.0); MEAN PLATELET VOLUME 13.4 fL (7.9-10.8); RED BLOOD COUNT 4.63 10^6/uL (4.20-5.40); RED CELL DISTRIBUTION WIDTH 12.8 % (12.0-15.0); WHITE BLOOD COUNT 7.1 x10^3/uL (4.8-10.8)
[2024-06-12 16:05] LABS: ALBUMIN 4.2 g/dL (3.2-5.5); ALKALINE PHOSPHATASE 60 IU/L (42-121); ALT ALANINE AMINOTRANSFERASE 20 IU/L (10-60); AST ASPARTATE AMINOTRANSFERASE 15 IU/L (10-42); BILIRUBIN,TOTAL 0.6 mg/dL (0.2-1.0); BUN - BLOOD UREA NITROGEN 10 mg/dL (6-20); CALCIUM 8.8 mg/dL (8.5-10.3); CARBON DIOXIDE - CO2 25 mmol/L (21-32); CHLORIDE 108 mmol/L (101-111); CREATININE 0.7 mg/dL (0.6-1.3); CRP - C-REACTIVE PROTEIN < 0.5 mg/dL (<0.5); GFR - MDRD 91 (>89); GLUCOSE 98 mg/dL (74-104); POTASSIUM 4.2 mmol/L (3.5-4.5); SODIUM 138 mmol/L (135-145); TOTAL PROTEIN 6.3 g/dL (6.4-8.9)
== END 2024-06-12 08:15 | disposition home or self-care (01) ==
LOC: LAB.S 08:14
PROVIDERS: ATTEND Internal Medicine Rheumatology
DX: L40.50 Arthropathic psoriasis, unspecified (principal)
CPT/HCPCS: 36415; 80053; 85027; 85651; 86140